=== PATIENT | female | born 2000 | race Caucasian/White ===

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

== ENCOUNTER 2023-05-05 15:31 | Outpatient (CLI) | payer BC | END 2023-05-05 15:32 | disposition home or self-care (01) | LOC: RAD-FRANK 15:31 | PROVIDERS: ATTEND Nurse Practitioner Family | DX: M54.9 Dorsalgia, unspecified (principal) | CPT/HCPCS: 72100 ==